=== PATIENT | male | born 1950 | race Hispanic/Latino ===

== ENCOUNTER 2017-10-11 06:24 | Observation (INO) | payer OTHER ==
[2017-10-09 09:00] VITALS: BP 135/70
[2017-10-09 09:05] LABS: BASOPHILS % (AUTO) 0.7 % (0.0-5.0); EOSINOPHILS % (AUTO) 3.1 % (0.0-8.0); HEMATOCRIT 39.7 % (42-54); LYMPHOCYTES % (AUTO) 28.2 % (21.0-51.0); MEAN CORPUSCULAR HEMOGLOBIN 32.2 pg (27.0-33.0); MEAN CORPUSCULAR HGB CONC 35.5 g/dL (32.0-36.0); MEAN CORPUSCULAR VOLUME 90.7 fL (79-99); MONOCYTES % (AUTO) 8.1 % (3.0-13.0); NEUTROPHILS % (AUTO) 59.9 % (40.0-77.0); PLATELET COUNT (AUTO) 129 K/uL (130-400); RED BLOOD CELL COUNT(AUTO) 4.38 MIL/uL (4.50-6.20); RED CELL DISTRIBUTION WIDTH 13.2 % (11.0-15.5); WHITE BLOOD COUNT (AUTO) 5.1 K/uL (4.8-10.8)
[2017-10-09 09:14] LABS: CREATININE 1.1 mg/dL (0.5-1.5); POTASSIUM 4.3 mmol/L (3.5-5.1)
[2017-10-09 09:23] LABS: PARTIAL THROMBOPLASTIN TIME 26.7 SEC (26.3-35.5); PROTHROMBIN TIME 10.5 SEC (9.6-11.6)
[2017-10-09 09:48] LABS: APPEARANCE,URINE Clear (CLEAR); BILIRUBIN,URINE Negative (NEGATIVE); COLOR,URINE Yellow (YELLOW); GLUCOSE, URINE (UA) Negative (NEGATIVE); KETONES,URINE Negative (NEGATIVE); LEUKOCYTE ESTERASE ,URINE Negative (NEGATIVE); NITRATE,URINE Negative (NEGATIVE); OCCULT BLOOD,URINE Negative (NEGATIVE); PROTEIN,URINE Negative (NEGATIVE)
[2017-10-11] VITALS (9 sets, daily range): BP systolic 116–143; BP diastolic 70–88
[~2017-10-11] VITALS: Ht 167.6 cm; Wt 72.8 kg
[~2017-10-11 06:24] MED LIST: ASPI-1181 PO; ATOR40TA71 PO; ISOS30TA6 PO; RANO10003 PO; TERA5CAP4 PO
[2017-10-11] MEDS ORDERED: SODIUM CHLORIDE 0.9% 1000ML 1,000 ML IV ONE (06:53)
[2017-10-11] MEDS ORDERED: IOPAMIDOL-370 100 ML VIAL IV ONE ×4 (09:25→11:38)
[2017-10-11] MEDS ORDERED: HEPARIN SODIUM 1000UNIT/ML 10ML VIAL ONE (09:25)
[2017-10-11] MEDS ORDERED: ISOVUE-370 50ML VIAL IV ONE (09:25)
[2017-10-11] MEDS ORDERED: NITROGLYCERIN 5 MG/ML 10 ML VIAL IV ONE (09:25)
[2017-10-11] MEDS ORDERED: LIDOCAINE HCL 2% 20ML ONE (09:26)
[2017-10-11] MEDS ORDERED: BIVALIRUDIN 250 MG/VIAL IV ONE (09:30)
[2017-10-11] MEDS ORDERED: MIDAZOLAM HCL 1 MG/ML 2ML VIAL ONE (10:10)
[2017-10-11] MEDS ORDERED: FENTANYL CITRATE PF 50 MCG/1 ML 2ML VIAL ONE (11:57)
[2017-10-11] MEDS ORDERED: ASPIRIN 325MG EC TAB 325 MG TABLET.DR PO ONE (12:10)
[2017-10-11] MEDS ORDERED: PRASUGREL HCL 10 MG TABLET ONE (12:10)
[2017-10-11] MEDS ORDERED: SODIUM CHLORIDE 0.9% 1000ML 1,000 ML IV SCH (12:13)
[2017-10-11] MEDS ORDERED: ACETAMINOPHEN-CODEINE 300/30MG TAB PO PRN ×2 (12:15)
[2017-10-11] MEDS ORDERED: PRAS10TA6 PO (12:22)
[2017-10-11] MEDS: RANOLAZINE 500 MG TAB.SR.12H PO SCH (20:26)
[2017-10-11] MEDS ORDERED: ATORVASTATIN CALCIUM 40 MG TABLET PO SCH (21:00)
[2017-10-11] MEDS ORDERED: TERAZOSIN HCL 5 MG CAPSULE PO SCH (21:00)
[2017-10-12] VITALS: BP 136/71
[2017-10-12 04:00] VITALS: BP 134/68
[2017-10-12 04:34] LABS: HEMATOCRIT 39.3 % (42-54); MEAN CORPUSCULAR HEMOGLOBIN 31.1 pg (27.0-33.0); MEAN CORPUSCULAR HGB CONC 34.1 g/dL (32.0-36.0); MEAN CORPUSCULAR VOLUME 91.2 fL (79-99); PLATELET COUNT (AUTO) 131 K/uL (130-400); RED BLOOD CELL COUNT(AUTO) 4.31 MIL/uL (4.50-6.20); RED CELL DISTRIBUTION WIDTH 13.3 % (11.0-15.5); WHITE BLOOD COUNT (AUTO) 7.9 K/uL (4.8-10.8)
[2017-10-12 05:01] LABS: CREATINE KINASE MB 13.8 ng/mL (0.5-3.6); POTASSIUM 3.7 mmol/L (3.5-5.1)
[2017-10-12 05:02] LABS: TROPONIN I 1.68 ng/mL (0.00-0.06)
[2017-10-12 07:39] VITALS: BP 141/71
[2017-10-12] MEDS: RANOLAZINE 500 MG TAB.SR.12H PO SCH (07:57)
[2017-10-12] MEDS ORDERED: ISOSORBIDE MONO 30MG TAB SR PO SCH (09:00)
[2017-10-12] MEDS ORDERED: PRASUGREL HCL 10 MG TABLET PO SCH (09:00)
[2017-10-12] MEDS ORDERED: ASPIRIN 81 MG EC TAB PO SCH (09:00)
[2017-10-12 11:29] VITALS: BP 139/72
== END 2017-10-12 11:15 | disposition home or self-care (01) ==
LOC: DAH 06:24 → DAHIP 06:25 → 2AH 14:09
PROVIDERS: ADMIT Internal Medicine Cardiovascular Disease; ATTEND Internal Medicine Cardiovascular Disease
DX: I25.119 Atherosclerotic heart disease of native coronary artery with unspecified angina pectoris (principal); E78.5 Hyperlipidemia, unspecified; N40.0 Benign prostatic hyperplasia without lower urinary tract symptoms; D69.6 Thrombocytopenia, unspecified
CPT/HCPCS: 36415 ×2; 71045; 80048 ×2; 80061; 81003; 82550; 82553; 83874; 84484; 85025; 85027; 85610; 85730; 92920; 93005 ×2; 93458; A4606; C1725; C1760; C1769; C1874; C1887 ×2; C1894 ×2; C9600; G0378 ×29; J0583; J1644; J2250; J3010; J3490; J7030; Q9967 ×5; 99152; 99153

== ENCOUNTER 2017-12-11 06:25 | Day surgery (SDC) | payer OTHER ==
[2017-12-10 13:43] VITALS: BP 124/69
[2017-12-10 13:53] LABS: BASOPHILS % (AUTO) 0.7 % (0.0-5.0); HEMATOCRIT 39.6 % (42-54); LYMPHOCYTES % (AUTO) 23.5 % (21.0-51.0); MEAN CORPUSCULAR HEMOGLOBIN 31.8 pg (27.0-33.0); MEAN CORPUSCULAR HGB CONC 34.5 g/dL (32.0-36.0); MEAN CORPUSCULAR VOLUME 92.1 fL (79-99); MONOCYTES % (AUTO) 8.7 % (3.0-13.0); NEUTROPHILS % (AUTO) 65.1 % (40.0-77.0); NUCLEATED RED BLOOD CELLS 0.1 % (0.0-0.19); PLATELET COUNT (AUTO) 152 K/uL (130-400); RED CELL DISTRIBUTION WIDTH 12.9 % (11.0-15.5); WHITE BLOOD COUNT (AUTO) 5.6 K/uL (4.8-10.8)
[2017-12-10 13:56] LABS: APPEARANCE,URINE Clear (CLEAR); BILIRUBIN,URINE Negative (NEGATIVE); COLOR,URINE Yellow (YELLOW); GLUCOSE, URINE (UA) Negative (NEGATIVE); KETONES,URINE Negative (NEGATIVE); LEUKOCYTE ESTERASE ,URINE Negative (NEGATIVE); NITRATE,URINE Negative (NEGATIVE); OCCULT BLOOD,URINE Negative (NEGATIVE); PH,URINE 5.5 (5.0-8.0); PROTEIN,URINE Negative (NEGATIVE); UROBILINOGEN,URINE 0.2 mg/dL (0.2-1.0)
[2017-12-10 14:03] LABS: CREATININE 0.9 mg/dL (0.5-1.5); POTASSIUM 4.1 mmol/L (3.5-5.1)
[2017-12-10 14:06] LABS: INR 0.96 (0.85-1.15); PARTIAL THROMBOPLASTIN TIME 26.9 SEC (26.3-35.5); PROTHROMBIN TIME 10.1 SEC (9.6-11.6)
[~2017-12-11] VITALS: Ht 168.9 cm; Wt 73.8 kg
[2017-12-11] VITALS (11 sets, daily range): BP systolic 110–143; BP diastolic 55–71
[~2017-12-11 06:25] MED LIST changes: +PRAS10TA6 PO; -RANO10003 PO
[2017-12-11] MEDS ORDERED: SODIUM CHLORIDE 0.9% 1000ML 1,000 ML IV SCH ×2 (08:00→12:12)
[2017-12-11] MEDS ORDERED: LIDOCAINE HCL 1% 20 ML VIAL ONE (09:27)
[2017-12-11] MEDS ORDERED: NITROGLYCERIN 5 MG/ML 10 ML VIAL IV ONE (09:27)
[2017-12-11] MEDS ORDERED: BIVALIRUDIN 250 MG/VIAL IV ONE ×2 (09:27→11:33)
[2017-12-11] MEDS ORDERED: MIDAZOLAM HCL 1 MG/ML 2ML VIAL ONE (09:28)
[2017-12-11] MEDS ORDERED: IOPAMIDOL-370 100 ML VIAL IV ONE ×2 (09:28→11:08)
[2017-12-11] MEDS ORDERED: LIDOCAINE PF 2% 5ML ABBOJECT ONE (09:57)
[2017-12-11] MEDS ORDERED: DOPAMINE HCL 400 MG/D5%-WATER 0 ML IV ONE (09:57)
[2017-12-11] MEDS ORDERED: ATROPINE SULFATE 0.1 MG/ML 10 ML SYG IVP ONE (09:57)
[2017-12-11] MEDS ORDERED: FENTANYL CITRATE PF 50 MCG/1 ML 2ML VIAL ONE (11:53)
== END 2017-12-11 18:43 | disposition home or self-care (01) ==
LOC: DAH 06:25
PROVIDERS: ATTEND Internal Medicine Cardiovascular Disease
DX: I25.118 Atherosclerotic heart disease of native coronary artery with other forms of angina pectoris (principal); E78.5 Hyperlipidemia, unspecified; N40.0 Benign prostatic hyperplasia without lower urinary tract symptoms; Z79.899 Other long term (current) drug therapy; D69.6 Thrombocytopenia, unspecified; Z98.890 Other specified postprocedural states; Z95.5 Presence of coronary angioplasty implant and graft; R00.1 Bradycardia, unspecified
CPT/HCPCS: 36415; 71045; 80048; 81003; 85025; 85610; 85730; 92920; 93005; 93454; 99152 ×2; 99153; A4606; C1760 ×2; C1769 ×3; C1887; C1894; J0583 ×2; J1644; J2250; J3010; J3490; J7030; Q9967 ×2; 99156; 99157; J0461; J1265; J2001